=== PATIENT | female | born 1995 | race Hispanic/Latino ===

== ENCOUNTER 2018-10-25 19:55 | Emergency (ER) | payer SELFPAY ==
[~2018-10-25] VITALS: Ht 157.5 cm; Wt 112.5 kg
--- NOTE | 2018-10-25 20:50 | NUR ---
ER MD OFFERED PAIN MEDICATION TO PT, PT DECLINED AT THIS TIME
--- NOTE | 2018-10-25 21:21 | Diagnostic Imaging Report ---
EXAM: CT Abdomen and Pelvis WITH contrast INDICATION: Pain COMPARISON: None. TECHNIQUE: Abdomen and Pelvis was scanned utilizing a multidetector helical scanner after administration of IV contrast. Coronal and sagittal reformations were obtained. IV CONTRAST: 100 mL Isovue-370. COMPLICATIONS: None RADIATION DOSE: Total DLP:1070 mGy*cm Estimated effective dose: (DLP x 0.015 x size factor) mSv CTDIvol has been reviewed. It is below the limits set by the Radiation Protocol Committee (RPC). Appropriate CT dose reduction techniques were utilized. FINDINGS: Abdomen: Lung Bases: Atelectasis. Solid Organs: Within limitations of quantum mottle secondary to body habitus, liver, adrenals, kidneys, spleen, and pancreas are unremarkable. Upper GI Tract: Small hiatal hernia. No small bowel obstructive changes. Vascularity: No aortic aneurysm. Lymph Nodes: No suspicious adenopathy. Other: No free fluid or free air. Pelvis: Bladder: Unremarkable. Other: Uterus/adnexa grossly unremarkable within limitations of CT. Colon: No acute colonic findings. Appendix not inflamed. Bones: No acute findings. IMPRESSION: 1. No acute findings. See above for full details. Signed by: Dr. Larry Haywood MD on 10/25/2018 9:18 PM
[2018-10-25 21:30] VITALS: BP 127/63
== END 2018-10-25 21:45 | disposition home or self-care (01) ==
LOC: FSED 19:55
DX: R10.11 Right upper quadrant pain (principal); M54.5 Low back pain; R11.2 Nausea with vomiting, unspecified
CPT/HCPCS: 74177; 80048; 80076; 81003; 81025; 85025; 99284